=== PATIENT | female | born 1955 | race Caucasian/White ===

== ENCOUNTER 2022-09-29 12:34 | Emergency (ER) | payer SELFPAY ==
[2022-09-29] MEDS ORDERED: FENTANYL CITR 100 MCG/2 ML ONE (14:07)
[2022-09-29] MEDS ORDERED: ONDANSETRON 4 MG/2 ML VIAL ONE (14:07)
[2022-09-29 14:10] LABS: Absolute Lymphocytes (CBC) 1.1 K/uL (0.7-4.9); Hematocrit 38.1 % (36.0-45.0); Lymphocytes % 18.4 % (15.3-44.8); MCV 82.5 fL (80-100); MPV 8.8 fL (7.6-11.3); RBC Red Blood Cell Count 4.62 M/uL (3.86-4.86)
[2022-09-29 14:30] LABS: Albumin 3.9 g/dL (3.4-5.0); Bilirubin Total 0.3 mg/dL (0.2-1.0); Protein, Total 8.3 g/dL (6.4-8.2)
[2022-09-29] MEDS ORDERED: NA CHLORIDE 0.9% 1,000 ML ONE (14:57)
--- NOTE | 2022-09-29 15:38 | RAD REPORT ---
EXAM DESCRIPTION: CT - Head Brain Wo Cont - 09/29/2022 3:29 pm CLINICAL HISTORY: confusion COMPARISON: No comparisons TECHNIQUE: All CT scans are performed using dose optimization technique as appropriate and may inclu de automated exposure control or mA/KV adjustment according to patient size. FINDINGS: No intracranial hemorrhage, hydrocephalus or extra-axial fluid collection.No areas of brai n edema or evidence of midline shift. The paranasal sinuses and mastoids are clear. The calvarium is intact. IMPRESSION: No acute intracranial abnormality.
--- NOTE | 2022-09-29 15:44 | RAD REPORT ---
EXAM DESCRIPTION: CTAbdomen Pelvis W Contrast - 09/29/2022 3:29 pm CLINICAL HISTORY: LLQ abdominal pain COMPARISON: Head Brain Wo Cont dated 09/29/2022 TECHNIQUE: CT of the abdomen and pelvis was performed. All CT scans are performed using dose optimization technique as appropriate and may include automated exposure control or mA/KV adjustment according to patient size. FINDINGS: Lower chest: No acute abnormality. Liver: Innumerable liver lesions most of which are consistent with simple cysts. There is a vague are a of hypoattenuation associated many of the cystic lesions in the posterior aspect of the right hepat ic lobe. Biliary: No biliary ductal dilatation. Stomach: No significant focal abnormality. Duodenum: No significant focal abnormality. Pancreas: No significant abnormality. Spleen: No significant abnormality. Adrenal: No suspicious lesions. Kidney/ureter: No hydronephrosis. No renal calculi. Too small to characterize and/or benign appearing renal lesions are noted. Retroperitoneum: No retroperitoneal adenopathy. Vascular: No aneurysm. Bowel: No significant focal abnormality. Peritoneum: No ascites or free air. Small fat containing umbilical hernia. Bladder: Grossly unremarkable. Reproductive: No adnexal masses. Bones: Age indeterminate left L3 and L4 transverse process fractures. Other: n/a IMPRESSION: 1. Age indeterminate left L3 and L4 transverse process fractures. 2. Innumerable liver lesions, the majority of which are consistent with simple cysts. Areas of hypoat tenuation in the posterior right hepatic lobe may reflect areas of focal fatty infiltration. Neverthe less, consideration for nonemergent hepatic protocol CT or MRI is suggested to confirm.
[2022-09-29 16:43] LABS: Urine Blood Trace-intact (Negative); Urine Glucose Negative (Negative); Urine Protein Negative (Negative); Urine Specific Gravity 1.015 (1.005-1.030)
[2022-09-29 16:53] LABS: Urine Bacteria None Seen /HPF (<20); Urine Crystals Unidentified Few /HPF (None Seen); Urine RBC <5 /HPF (None Seen)
--- NOTE | 2022-09-29 17:53 | ER ---
Nurse's Notes [facility] Name: Lissa Higgins Age: 66 yrs Sex: Female : 1955 Arrival Date: 09/29/2022 Time: 12:35 Bed 14 Private MD: Diagnosis: Lower abdominal pain, unspecified Presentation: 09/29 13:07 Chief complaint: Patient states: left lower abdominal pain starting today. stated she kc6 had abdominal surgery recently. Coronavirus screen: Vaccine status: Patient reports being unvaccinated. Ebola Screen: No symptoms or risks identified at this time. Initial Sepsis Screen: Does the patient meet any 2 criteria? No. Patient's initial sepsis screen is negative. Does the patient have a suspected source of infection? No. Patient's initial sepsis screen is negative. Risk Assessment: Do you want to hurt yourself or someone else? Patient reports no desire to harm self or others. Onset of symptoms was September 29, 2022. 13:07 Method Of Arrival: Wheelchair kc6 13:07 Acuity: KIERSTEN 3 kc6 Triage Assessment: 13:12 General: Appears in no apparent distress. uncomfortable, Behavior is cooperative, kc6 appropriate for age, anxious. Pain: Complains of pain in left lower quadrant Pain does not radiate. Pain currently is 10 out of 10 on a pain scale. Quality of pain is described as sharp, Pain began suddenly, Is continuous, Alleviated by nothing. Aggravated by increased activity, Noted to be moaning, resistant to movement, Also complains of no other associated symptoms. GI: Patient currently denies diarrhea, nausea, vomiting. Historical: - Allergies: 13:12 Codeine; kc6 - Home Meds: 13:12 None [Active]; kc6 - PMHx: 13:12 None; kc6 - PSHx: 13:12 None; kc6 - Immunization history:: Client reports receiving the 2nd dose of the Covid vaccine, Flu vaccine is not up to date. - Social history:: Smoking status: Patient denies any tobacco usage or history of. Screenin:03 [facility] ED Fall Risk Assessment (Adult) History of falling in the last 3 months, bp including since admission No falls in past 3 months (0 pts). Abuse screen: Denies threats or abuse. Denies injuries from another. Nutritional screening: No deficits noted. Tuberculosis screening: No symptoms or risk factors identified. Assessment: 13:30 General: SEE TRIAGE NOTE. bp 15:03 Reassessment: No changes from previously documented assessment. Patient and/or family bp updated on plan of care and expected duration. Pain level reassessed. 16:00 Reassessment: PT CHANGED TO HOSPITAL ATTIRE. bp 18:00 Reassessment: DC ON HOLD PENDING BROTHER AT 2200, PT UNABLE TO BE PLACED IN LOBBY 2/2 bp VISIBLE INSECT INFESTATION ON CLOTHING. 22:20 General: Brother arrived to take patient home. Patient ambulated with steady gait to pf1 vehicle.. Vital Signs: 13:07 BP 140 / 080; Pulse 104; Resp 18 S; Temp 98.7(O); Pulse Ox 100% on R/A; Weight 81.65 kg kc6 (R); Height 5 ft. 8 in. (172.72 cm) (R); Pain 10/10; 15:02 BP 155 / 75; Pulse 85; Resp 15; Pulse Ox 100% ; bp 16:00 BP 161 / 80; Pulse 83; Resp 14; Pulse Ox 99% ; bp 17:00 BP 152 / 78; Pulse 75; Resp 14; Pulse Ox 100% ; bp 18:00 BP 164 / 81; Pulse 75; Resp 16; Pulse Ox 98% ; bp 19:00 BP 142 / 80; Pulse 77; Resp 18; Temp 98.2; Pulse Ox 100% on R/A; Pain 0/10; pf1 13:07 Body Mass Index 27.37 (81.65 kg, 172.72 cm) kc6 ED Course: 12:35 Patient arrived in ED. as 13:00 Lashanda Saenz FNP-C is PHCP. kb 13:00 Tye Rao MD is Attending Physician. kb 13:12 Triage completed. kc6 13:12 Arm band placed on. kc6 13:37 Damian Cruz, CHANTEL is Primary Nurse. bp 14:00 Inserted saline lock: 20 gauge in right forearm, using aseptic technique. Blood bp collected. 15:03 Patient has correct armband on for positive identification. Bed in low position. Call bp light in reach. Side rails up X2. 15:31 CT Abd/Pelvis - IV Contrast Only In Process Unspecified. EDMS 15:31 CT Head Brain wo Cont In Process Unspecified. EDMS 20:34 Primary Nurse role handed off by Damian Cruz, RN wm 22:30 No provider procedures requiring assistance completed. pf1 22:41 IV discontinued, intact, bleeding controlled, No redness/swelling at site. Pressure mb9 dressing applied. Administered Medications: 14:10 Drug: fentaNYL (PF) 25 mcg Route: IVP; Site: right forearm; bp 15:37 Follow up: Response: No adverse reaction; Pain is decreased bp 14:10 Drug: Zofran (Ondansetron) 4 mg Route: IVP; Site: right forearm; bp 15:37 Follow up: Response: No adverse reaction bp 15:37 Drug: NS 0.9% 1000 ml Route: IV; Rate: 1000 ml; Site: right forearm; bp Medication: 15:03 VIS not applicable for this client. bp Outcome: 17:53 Discharge ordered by MD. kb 22:41 Discharged to home ambulatory. mb9 22:41 Condition: stable 22:41 Discharge instructions given to patient, Instructed on discharge instructions, follow up and referral plans. Demonstrated understanding of instructions, follow-up care. 22:41 Patient left the ED. mb9 Signatures: Dispatcher [employer] EDAZ Lashanda Saenz, CONTENT STRATEGY LEAD-C CONTENT STRATEGY LEAD-Ckb Tamiko Castellano as Dmaian Cruz, RN RN Jackie Hwang Kaitlyn, RN RN kc6 Lissa Campos RN RN mb9 Batsheva bedolla RN RN pf1
--- NOTE | 2022-09-29 17:53 | EDPHYS ---
Physician Documentation [facility] Name: Lissa Higgins Age: 66 yrs Sex: Female : 1955 Arrival Date: 09/29/2022 Time: 12:35 Bed 14 Private MD: ED Physician Tye Rao HPI: 09/30 00:35 This 66 yrs old Female presents to ER via Wheelchair with complaints of Abdominal Pain. kb 00:35 The patient presents with abdominal pain in the left upper quadrant, in the left lower kb quadrant. Onset: The symptoms/episode began/occurred today. The symptoms do not radiate. Associated signs and symptoms: none. The symptoms are described as constant. Modifying factors: The symptoms are alleviated by nothing, the symptoms are aggravated by pressure. Severity of pain: At its worst the pain was moderate in the emergency department the pain is unchanged. The patient has not experienced similar symptoms in the past. The patient has not recently seen a physician. Patient reports left abdominal pain that started today. Denies fever, nausea, vomiting, diarrhea. Patient states she just had an abdominal surgery for this pain and is concerned about infection. No surgical incisions or scars noted to abdomen.. Historical: - Allergies: 09/29 13:12 Codeine; kc6 - Home Meds: 13:12 None [Active]; kc6 - PMHx: 13:12 None; kc6 - PSHx: 13:12 None; kc6 - Immunization history:: Client reports receiving the 2nd dose of the Covid vaccine, Flu vaccine is not up to date. - Social history:: Smoking status: Patient denies any tobacco usage or history of. ROS: 09/30 00:35 Constitutional: Negative for fever, chills, and weight loss. kb Abdomen/GI: Positive for abdominal pain. All other systems are negative. Exam: 00:35 Constitutional: This is a well developed, well nourished patient who is awake, alert, kb and in no acute distress. Head/Face: Normocephalic, atraumatic. ENT: Moist Mucous membranes Cardiovascular: Regular rate and rhythm with a normal S1 and S2. No gallops, murmurs, or rubs. No pulse deficits. Respiratory: Respirations even and unlabored. No increased work of breathing. Talking in full sentences Skin: Warm, dry with normal turgor. Normal color. MS/ Extremity: Pulses equal, no cyanosis. Neurovascular intact. Full, normal range of motion. Neuro: Awake and alert, GCS 15, oriented to person, place, time, and situation. Moves all extremities. Normal gait. Psych: Awake, alert, with orientation to person, place and time. Behavior, mood, and affect are within normal limits. 00:35 Abdomen/GI: Inspection: abdomen appears normal, Bowel sounds: normal, in all quadrants, Palpation: soft, in all quadrants, mild abdominal tenderness, in the left lower quadrant, moderate abdominal tenderness, in the left upper quadrant. Vital Signs: 09/29 13:07 BP 140 / 080; Pulse 104; Resp 18 S; Temp 98.7(O); Pulse Ox 100% on R/A; Weight 81.65 kg kc6 (R); Height 5 ft. 8 in. (172.72 cm) (R); Pain 10/10; 15:02 BP 155 / 75; Pulse 85; Resp 15; Pulse Ox 100% ; bp 16:00 BP 161 / 80; Pulse 83; Resp 14; Pulse Ox 99% ; bp 17:00 BP 152 / 78; Pulse 75; Resp 14; Pulse Ox 100% ; bp 18:00 BP 164 / 81; Pulse 75; Resp 16; Pulse Ox 98% ; bp 19:00 BP 142 / 80; Pulse 77; Resp 18; Temp 98.2; Pulse Ox 100% on R/A; Pain 0/10; pf1 13:07 Body Mass Index 27.37 (81.65 kg, 172.72 cm) kc6 MDM: 13:12 Patient medically screened. kb 09/30 00:33 Data reviewed: vital signs, nurses notes. Data interpreted: Pulse oximetry: on room air kb is 98 %. Interpretation: normal. Counseling: I had a detailed discussion with the patient and/or guardian regarding: the historical points, exam findings, and any diagnostic results supporting the discharge/admit diagnosis, lab results, radiology results, the need for outpatient follow up, a family practitioner, to return to the emergency department if symptoms worsen or persist or if there are any questions or concerns that arise at home. ED course: Consideration of hospitalization: Hospitalization considered for abdominal pain and appearance of confusion upon arrival. Abdominal pain controlled at time of discharge and patient is awake, alert and oriented x4. Management of the patient was discussed with the following: Dr. Rao; History obtained from: Patient. 00:35 Differential diagnosis: diverticulitis, non-specific abd pain, urinary tract infection. 09/29 13:18 Order name: CBC with Diff; Complete Time: 14:37 [facility] 09/29 13:18 Order name: CMP; Complete Time: 14:37 [facility] 09/29 13:18 Order name: Lipase; Complete Time: 14:37 [facility] 09/29 13:18 Order name: Urine Microscopic Only; Complete Time: 16:57 [facility] 09/29 13:18 Order name: Lactate w/ 2H reflex if indic.; Complete Time: 14:37 [facility] 09/29 13:18 Order name: Blood Culture Adult (2) [facility] 09/29 13:18 Order name: CT Abd/Pelvis - IV Contrast Only; Complete Time: 15:44 [facility] 09/29 13:18 Order name: IV Saline Lock; Complete Time: 13:58 [facility] 09/29 13:18 Order name: Labs collected and sent; Complete Time: 13:58 [facility] 09/29 13:31 Order name: CT Head Brain wo Cont; Complete Time: 15:43 09/29 16:43 Order name: Urine Dipstick-Ancillary; Complete Time: 16:50 EDMS 09/29 13:18 Order name: Urine Dipstick-Ancillary (obtain specimen); Complete Time: 18:07 [facility] Administered Medications: 09/29 14:10 Drug: fentaNYL (PF) 25 mcg Route: IVP; Site: right forearm; bp 15:37 Follow up: Response: No adverse reaction; Pain is decreased bp 14:10 Drug: Zofran (Ondansetron) 4 mg Route: IVP; Site: right forearm; bp 15:37 Follow up: Response: No adverse reaction bp 15:37 Drug: NS 0.9% 1000 ml Route: IV; Rate: 1000 ml; Site: right forearm; bp Disposition: 09/30 15:09 Co-signature as Attending Physician, Tye Rao MD. rn Disposition Summary: 09/29/22 17:53 Discharge Ordered Location: Home kb Condition: Stable kb Diagnosis - Lower abdominal pain, unspecified kb Followup: kb - With: Emergency Department - When: As needed - Reason: Worsening of condition Followup: kb - With: Private Physician - When: 2 - 3 days - Reason: Recheck today's complaints, Continuance of care, Re-evaluation by your physician Discharge Instructions: - Discharge Summary Sheet kb - Abdominal Pain, Adult, [id number] kb Forms: - Medication Reconciliation Form kb - Thank You Letter kb - Antibiotic Education kb - Prescription Opioid Use kb Signatures: Dispatcher [employer] EDLashanda Arce, HOME COMFORT ADVISOR-C HOME COMFORT ADVISOR-Ckb Tye Rao MD MD rn Peltier, Brian RN RN Keren Roberts RN RN kc6
[2022-09-29 23:33] VITALS: TEMP 98.7
[2022-09-29 23:48] VITALS: BP 164/81; O2SAT 98
== END 2022-09-29 22:41 | disposition home or self-care (01) ==
LOC: ER 12:34
DX: R10.32 Left lower quadrant pain (principal); Z88.5 Allergy status to narcotic agent
CPT/HCPCS: 36415; 70450; 74177; 80053; 81003; 81015; 83605; 83690; 85025; 87040; 96374; 96375; 99284; J2405; J3010; J7030; Q9967